=== PATIENT | male | born 2000 | race Caucasian/White ===

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

== ENCOUNTER 2023-10-28 13:19 | Emergency (ER) | payer BC, SELFPAY ==
[2023-10-28 13:35] VITALS: BP 162/73; PULSE 84; RESP 12; TEMP 36.1; O2SAT 97
--- NOTE | 2023-10-28 14:25 | DI.RAD_ITS ---
Exam(s) XR RIBS LT W PA LAT CHEST CLINICAL HISTORY Posterior lateral blunt trauma. COMPARISON: No exams were available for comparison TECHNIQUE:: PA and lateral views of the chest and four views of the left ribs were performed. FINDINGS: LUNGS: Clear. No pleural abnormality seen. HEART: Normal. MEDIASTINUM: Normal. BONES: No displaced rib fracture is seen. No compression fractures are seen in the thoracic spine. No bony destructive lesion is seen. OTHER FINDINGS: None. IMPRESSION: 1. Unremarkable radiographic appearance of the left ribs. 2. No acute pulmonary findings.
--- NOTE | 2023-10-28 14:56 | W.ED.GENAD ---
Discharge Plan Disposition Patient Disposition: Home Discharge Details Clinical Impression: Contusion of back wall of thorax Primary Care Provider: Eulalio Kumar ED Provider: Demetrio Gauthier Home Meds and New Rx's Prescriptions: New ibuprofen [IBU] 600 mg tablet 600 mg PO QID PRN (Reason: pain) Qty: 20 0RF Continued dextroamphetamine-amphetamine 10 mg tablet 10 mg PO DAILY Patient Comments: TAKE TWO TABLETS BY MOUTH EVERY DAY IN THE AFTERNOON dextroamphetamine-amphetamine 10 mg capsule,extended release 24hr 10 mg PO DAILY Patient Comments: TAKE ONE CAPSULE BY MOUTH EVERY MORNING - TAKE WITH 20MG ER CAPSULE FOR TOTAL OF 30MG DAILY - DO NOT CRUSH OR CHEW dextroamphetamine-amphetamine 20 mg capsule,extended release 24hr 20 mg PO DAILY Patient Comments: TAKE ONE CAPSULE BY MOUTH EVERY MORNING WITH ADDERAL XR 10MG sertraline 25 mg tablet 25 mg PO DAILY Patient Comments: TAKE ONE TABLET BY MOUTH EVERY DAY montelukast 10 mg tablet 10 mg PO DAILY Patient Comments: TAKE ONE TABLET BY MOUTH EVERY DAY sertraline 50 mg tablet 50 mg PO DAILY Patient Comments: TAKE ONE TABLET BY MOUTH EVERY DAY Discharge Instructions Instructions: Rib Fracture or Bruised Rib ED Additional Instructions: At this time no acute rib fractures were noted and I suspect chest wall contusion. If you have any new or significant worsening of symptoms feel free to return to the emergency department for reassessment otherwise follow-up with primary care provider if not improving You may continue use of kihm-fis-[id number] pain medication such as acetaminophen and if the provided lidocaine patch is beneficial you may purchase dapn-[id number] 4% lidocaine patches and apply to area of most pain and use as directed on packaging. Referrals: Eulalio Kumar [Primary Care Provider] - (As needed for reassessment or if not improving) [facility] General Mode of arrival: ambulatory. Date/Time Provider Initiated Documentation: 10/28/23 13:49. Limitations to Documentation: no limitations. Information obtained by: patient and RN notes reviewed. History of Present Illness 23 year old M presents to the emergency department with the chief complaint of Left chest wall pain, described as moderate and severe, Patient started experiencing this day(s) (3) and it has been constant. Immobilization improves symptom(s), Movement worsens symptoms . Related Data Home Medications ?Medication ?Instructions ?Recorded ?Confirmed dextroamphetamine-amphetamine 10 10 mg PO DAILY 10/28/23 10/28/23 mg tablet dextroamphetamine-amphetamine ER 10 mg PO DAILY 10/28/23 10/28/23 10 mg 24hr capsule,extend release dextroamphetamine-amphetamine ER 20 mg PO DAILY 10/28/23 10/28/23 20 mg 24hr capsule,extend release ibuprofen 600 mg tablet (IBU) 600 mg PO QID PRN pain #20 tabs 10/28/23 montelukast 10 mg tablet 10 mg PO DAILY 10/28/23 10/28/23 sertraline 25 mg tablet 25 mg PO DAILY 10/28/23 10/28/23 sertraline 50 mg tablet 50 mg PO DAILY 10/28/23 10/28/23 Previous Rx's ?Medication ?Instructions ?Recorded ibuprofen 600 mg tablet (IBU) 600 mg PO QID PRN pain #20 tabs 10/28/23 Allergies Allergy/AdvReac Type Severity Reaction Status Date / Time No Known Allergies Allergy Unverified 03/04/17 17:56 General Stated Complaint: Chest/Rib BILLY: 4 Review of Systems Constitutional Constitutional: Denies fever(s) Cardiovascular Cardiovascular: Reports chest pain (Chest wall) and Denies dyspnea Respiratory Respiratory: Denies cough, Reports pain on inspiration, Reports pain with cough and Denies dyspnea Gastrointestinal Gastrointestinal: Denies abdominal pain Integumentary/Breasts Skin/Breast: Denies unusual bruising Exam Const General: cooperative, no acute distress and not ill appearing Orientation: alert, awake and oriented x3 HENMT Mouth: moist mucous membranes Chest Chest: normal inspection of the chest, no crepitus, localized rib tenderness with anteroposterior compression left posterior-axillary line involving the 5th rib, involving the 6th rib and involving the 7th rib and tenderness rib left posterior-axillary line involving the 5th rib, involving the 6th rib and involving the 7th rib and sternum Breast inspection: normal inspection of the breasts Resp Effort & Inspection: normal respiratory effort, able to speak in complete sentences and no respiratory distress Auscultation: clear to auscultation bilaterally Cardio Rate: regular rate Rhythm: regular rhythm Heart Sounds: S1 normal and S2 normal Skin General skin exam: no rashes or lesions noted Neuro General: patient alert, patient awake, patient oriented x3, moves all extremities and no focal motor deficits Sensory Exam: no sensory deficits noted Course Vital Signs Vital signs: Vital Signs Temperature 36.1 C L 10/28/23 13:35 Pulse 84 10/28/23 13:35 Respiratory Rate 12 10/28/23 13:35 Blood Pressure 162/73 H 10/28/23 13:35 Pulse Oximetry 97 10/28/23 13:35 Temperature 36.1 C L 10/28/23 13:35 Temperature Source Skin 10/28/23 13:35 Pulse 84 10/28/23 13:35 Respiratory Rate 12 10/28/23 13:35 Respiratory Effort Short of Breath 10/28/23 14:23 Respiratory Depth Normal 10/28/23 14:23 Respiratory Pattern Normal 10/28/23 14:23 Blood Pressure 162/73 H 10/28/23 13:35 Blood Pressure Position Sitting 10/28/23 13:35 Pulse Oximetry 97 10/28/23 13:35 Oxygen Delivery Method Room Air 10/28/23 13:35 Oxygen Flow Rate 0 10/28/23 13:35 Pain Level 6 10/28/23 13:35 Medical Decision Making Patient presenting to the emergency department for chief complaint of fall with injury to left chest wall/ribs 3 days ago. Patient states that he was significantly intoxicated and fell against the door frame at his house injuring his left ribs. Patient denies any other injury or trauma, states continued symptoms to bring him into the emergency department today. Physical exam shows clear lung sounds in all burch, slight tenderness to palpation of sternum but most tenderness is present to left posterior axillary ribs 5-7. No signs of ecchymosis, no crepitus, exam otherwise noncontributory. Given blunt trauma with point tenderness will perform radiological imaging. Review of radiological imaging shows no acute pulmonary or bony findings noted. Will recommend lidocaine patch along with fekn-ggx-[id number] pain control. After discussion of diagnosis and plan of care patient has no further needs, questions, or concerns and states clear understanding to return to the emergency department for any worsening symptoms. This documentation was generated using [employer] dictation system, please disregard any oddities of phrase or misspellings. Imaging Data Radiologic Study: Radiologist's impression: FINDINGS: LUNGS: Clear. No pleural abnormality seen. HEART: Normal. MEDIASTINUM: Normal. BONES: No displaced rib fracture is seen. No compression fractures are seen in the thoracic spine. No bony destructive lesion is seen. OTHER FINDINGS: None. IMPRESSION: 1. Unremarkable radiographic appearance of the left ribs. 2. No acute pulmonary findings. Quality:SDOH Health Related Social Needs: No Data to Display PFSH All Active Problems (Updated 10/28/23 @ 15:02 by Demetrio Gauthier NP) Contusion of back wall of thorax (Acute) Social History Smoking/Tobacco Use Status: Current every day Tobacco Type: e-cigarettes Smoking risk assessment performed?: Yes Alcohol Intake: current Alcohol Intake frequency: a few times a week Drug use: Occasionally Substance use type: marijuana Do you feel safe at home: Yes Do you feel safe in your relationship?: Yes PAWSS Have you Been Recently Intoxicated or Drunk Within the Last 30 days?: No Have you Ever Experienced Previous Episodes of Alcohol Withdrawal?: No Have you ever Experienced Withdrawal Seizures?: No Have you ever Experienced Delirium Tremens(DT)s?: No Have you ever undergone Alcohol Rehabilitation Treatment (i.e, inpt ot outpatient treatment programs)?: No Have you ever Experienced Blackouts?: No Have you ever Combined Alcohol with other Downers within the last 90 days?: No Have you ever Combined Alcohol with any other Substance of Abuse during the last 90 days?: No Positive Blood Alcohol level on Presentation? [PCS.BAL]: No Evidence of Increased Autonomic Activity (i.e. HR>120, tremor, sweating, agitation, nausea)?: No Result: 0
[2023-10-28 15:09] VITALS: BP 129/68; PULSE 81; RESP 15; O2SAT 100
[2023-10-28] MEDS: Lidocaine 5% Patch 1 PATCH TP (15:11)
== END 2023-10-28 15:14 | disposition home or self-care (01) ==
PROVIDERS: Emergency Provider Nurse Practitioner Family; PCP Pediatrics
DX: S20.222A Contusion of left back wall of thorax, initial encounter (principal); F17.290 Nicotine dependence, other tobacco product, uncomplicated; W01.198A Fall on same level from slipping, tripping and stumbling with subsequent striking against other object, initial encounter; Y93.89 Activity, other specified; Y92.89 Other specified places as the place of occurrence of the external cause
CPT/HCPCS: 99283; 71046; 71100

== ENCOUNTER 2024-07-25 00:37 | Emergency (ER) | payer BC, SELFPAY ==
[2024-07-25] VITALS (70 sets, daily range): BP systolic 116–170; BP diastolic 45–99; PULSE 46–86; RESP 10–20; TEMP 35.7–36.1; O2SAT 92–100
--- NOTE | 2024-07-25 00:15 | RT.EKG_ITS ---
APPROVED REPORT Exam: Resting ECG Reason for Exam: OD Patient Location: E HR:75 bpm ECG Measurements Heart Rate 75 AXIS NE 165 P 75 QRSd 101 QRS 72 QT 381 T 53 QTc 426 Conclusion Sinus arrhythmia...V-rate 59- 87, variation>10% appropriate intervals no ST segment or T wave abnormalities to suggest occlusive [place]
[2024-07-25 00:44] LABS: BE (Venous) -5 mmol/L (-2-3); HCO3 (Venous) 22 mmol/L (23-28); O2 Sat (Venous) 72 %; TCO2 (Venous) 20 mmol/L (24-29); pCO2 (Venous) 51 mmHg (41-51); pH (Venous) 7.25 (7.31-7.41); pO2 (Venous) 41 mmHg
--- NOTE | 2024-07-25 00:45 | ED.GENADUL_ITS ---
Discharge Plan Disposition Patient Disposition: Home Condition: Good Discharge Details Clinical Impression: Overdose Primary Care Provider: Eulalio Kumar ED Provider: Jen Hussein Home Meds and New Rx's Prescriptions: Continued dextroamphetamine-amphetamine 20 mg capsule,extended release 24hr 20 mg PO DAILY Patient Comments: TAKE ONE CAPSULE BY MOUTH EVERY MORNING WITH ADDERAL XR 10MG sertraline 25 mg tablet 25 mg PO DAILY Patient Comments: TAKE ONE TABLET BY MOUTH EVERY DAY montelukast 10 mg tablet 10 mg PO DAILY Patient Comments: TAKE ONE TABLET BY MOUTH EVERY DAY sertraline 50 mg tablet 50 mg PO DAILY Patient Comments: TAKE ONE TABLET BY MOUTH EVERY DAY ibuprofen [IBU] 600 mg tablet 600 mg PO QID PRN (Reason: pain) Qty: 20 0RF Discontinued dextroamphetamine-amphetamine 10 mg tablet 10 mg PO DAILY Patient Comments: TAKE TWO TABLETS BY MOUTH EVERY DAY IN THE AFTERNOON dextroamphetamine-amphetamine 10 mg capsule,extended release 24hr 10 mg PO DAILY Patient Comments: TAKE ONE CAPSULE BY MOUTH EVERY MORNING - TAKE WITH 20MG ER CAPSULE FOR TOTAL OF 30MG DAILY - DO NOT CRUSH OR CHEW Discharge Instructions Instructions: Opioid Overdose ED Additional Instructions: Do not use recreational drugs. What happened last night would have killed you if you had not received medical attention. Please take home Narcan and make sure the people around you know how to use it. You will not be able to give it to yourself if you overdose. Call your primary care doctor on Saturday to schedule an appointment within one week to followup on your visit today. At that visit mention that your EKG showed some peaked T-waves; they may wish to followup on this with further testing. Return to the emergency department for new or worsening symptoms including chest pain, difficulty breathing, feeling like you are going to pass out, or if you have any other concerns. Referrals: Eulalio Kumar [Primary Care Provider] - HPI General Mode of arrival: EMS . Date/Time Provider Initiated Documentation: 07/25/24 00:39 . Limitations to Documentation: no limitations . Information obtained by: patient and EMS . HPI Narrative: 23yo previously healthy male presenting for overdose. He and several friends snorted a white powder that they thought was cocaine. Multiple people then became unresponsive. Patient went outside after he used the substance because he 'felt funny'. Per EMS he was found outside, not breathing. Recieved a total of 4mg of naracan prior to arrival as well as zofran. Temp with 91F on seen, got 500cc of warmed IVF. No reports of fall or head injury. Patient has no pain anywhere. Otherwise in his usual state of health. Was feeling well prior to this event. Related Data Home Medications ?Medication ?Instructions ?Recorded ?Confirmed dextroamphetamine-amphetamine ER 20 mg PO DAILY 10/28/23 07/25/24 20 mg 24hr capsule,extend release ibuprofen 600 mg tablet (IBU) 600 mg PO QID PRN pain #20 tabs 10/28/23 07/25/24 montelukast 10 mg tablet 10 mg PO DAILY 10/28/23 07/25/24 sertraline 25 mg tablet 25 mg PO DAILY 10/28/23 07/25/24 sertraline 50 mg tablet 50 mg PO DAILY 10/28/23 07/25/24 Previous Rx's ?Medication ?Instructions ?Recorded ibuprofen 600 mg tablet (IBU) 600 mg PO QID PRN pain #20 tabs 10/28/23 Allergies Allergy/AdvReac Type Severity Reaction Status Date / Time No Known Allergies Allergy Unverified 07/25/24 00:37 General Stated Complaint: OD/Poison BILLY: 2 Review of Systems Narrative: see HPI Exam Narrative Exam Narrative: General: Alert, in no acute distress. Head: Normocephalic, atraumatic Neck: Trachea midline, Neck supple. ENT: MMM. Cardiac: RRR, no murmurs appreciated Resp: No respiratory distress. CTAB. Abd: Soft, non-distended, nontender Extremities: No deformities. No peripheral edema. Neurologic: GCS 15. Moves all extremities freely against gravity Course Vital Signs Vital signs: Vital Signs Temperature 35.7 C L 07/25/24 00:24 Pulse 70 07/25/24 00:24 Respiratory Rate 16 07/25/24 00:24 Blood Pressure 170/82 H 07/25/24 00:24 Pulse Oximetry 100 07/25/24 00:24 Temperature 35.7 C L 07/25/24 00:24 Temperature Source Tympanic 07/25/24 00:24 Pulse 70 07/25/24 00:24 Respiratory Rate 16 07/25/24 00:33 Respiratory Effort Normal, Non-Labored 07/25/24 00:33 Respiratory Depth Normal 07/25/24 00:33 Respiratory Pattern Normal 07/25/24 00:33 Blood Pressure 170/82 H 07/25/24 00:24 Blood Pressure Position Supine 07/25/24 00:24 Pulse Oximetry 100 07/25/24 00:24 Oxygen Delivery Method Room Air 07/25/24 00:24 Oxygen Flow Rate 0 07/25/24 00:24 Pain Level 0 07/25/24 00:24 Lab/Test Results Lab/Test Results: Laboratory Tests Range/Units 07/25/24 00:41 VBG pH (7.31-7.41) 7.25 L VBG pCO2 (41-51) mmHg 51 VBG pO2 mmHg 41 VBG HCO3 (23-28) mmol/L 22 L VBG Total CO2 (24-29) mmol/L 20 L VBG O2 Saturation % 72 VBG Base Excess (-2-3) mmol/L -5 L Medical Decision Making 23yo previously healthy male presenting for overdose. He and several friends snorted a white powder that they thought was cocaine. Multiple people then became unresponsive. Per EMS he was found outside, not breathing. Recieved a t otal of 4mg of naracan prior to arrival as well as zofran. Temp with 91F on seen, got 500cc of warmed IVF. Alert with no complaints on arrival. Hypertensive on initial vital signs with normal O2 sat on room air, temp 35.7C. Given warmed blankets. BP improved without intervention. EKG on arrival SR, appropriate intervals, no ST segment or T wave abnormalities to suggest occlusive CO. Initial VBG with pH 7.25, normal bicarb, no hypercapnea. Repeat two hours later improved with pH 7.31. Subsequently noted to have increasingly peaked T waves on telemetry. Repeat EKG remains sinus, confirms T wave changes. Patient reports feeling well with no chest pain, SOB, or lightheadedness. Repeat vital signs remain reassuring. Additional labs sent and reviewed as below, CBC with leukocytosis to 21 (likely reactive), CMP normal with normal potassium, HS troponin 16 with one hour repeat 15. Observed in the ED for a total of 7 hours. On reassessment patient remains well appearing with reassuring vital signs. Reports feeling entirely well and back to normal. Alert, end tidal CO2 in low 40's. Discharged home with Narcan; discharge instructions and return precaustions were reviewed with patient who verbalized understanding. All questions were answered and he is in full agremeent with the plan. Lab Data Lab results reviewed: Yes I reviewed the patient's lab results. Labs: Laboratory Tests Range/Units 07/25/24 07/25/24 07/25/24 00:41 02:31 04:16 WBC (4.4-10.8) 10^3/uL 21.78 H RBC (4.36-5.78) 10^6/uL 5.03 Hgb (13.5-17.5) g/dL 15.1 Hct (40.0-50.0) % 45.6 MCV (80-95) fL 91 MCH (27.0-33.0) pg 30.0 MCHC (32.0-36.0) % 33.1 RDW (11.8-14.1) % 13.6 Plt Count (130-400) 10^3/uL 222 MPV (8.0-11.0) fL 10.3 Immature Gran % % 0.5 Neutrophils % % 86.3 Lymphocytes % % 7.6 Monocytes % % 5.3 Eosinophils % % 0.0 Basophils % % 0.3 Nucleated RBC % (0.0-0.3) % 0.0 Absolute Neutrophils (1.2-6.7) 10^3/uL 18.80 H Absolute Lymphocytes (1.2-3.4) 10^3/uL 1.66 Absolute Monocytes (0.1-0.8) 10^3/uL 1.15 H Absolute Eosinophils (0.0-0.7) 10^3/uL 0.00 Absolute Basophils (0.0-0.2) 10^3/uL 0.07 VBG pH (7.31-7.41) 7.25 L 7.31 VBG pCO2 (41-51) mmHg 51 51 VBG pO2 mmHg 41 51 VBG HCO3 (23-28) mmol/L 22 L 25 VBG Total CO2 (24-29) mmol/L 20 L 23 L VBG O2 Saturation % 72 85 VBG Base Excess (-2-3) mmol/L -5 L -1 Sodium (136-145) mmol/L 141 Potassium (3.5-5.1) mmol/L 4.3 Chloride (98-107) mmol/L 107 Carbon Dioxide (21.0-32.0) mmol/L 26.1 Anion Gap (3-11) mmol/L 7.9 BUN (7-18) mg/dL 17 Creatinine (0.70-1.30) mg/dL 0.8 Est GFR (CKD-EPI 2020) (mL/min/1.73m2) 128.33 Glucose (74-106) mg/dL 96 Calcium (8.5-10.1) mg/dL 9.1 Total Bilirubin (0.2-1.0) mg/dL 0.3 AST (15-37) U/L 18 ALT (16-63) U/L 31 Alkaline Phosphatase (46-116) U/L 88 Troponin I (<or=76) ng/L 16 Total Protein (6.4-8.2) g/dL 6.8 Albumin (3.4-5.0) g/dL 3.9 Range/Units 07/25/24 05:20 WBC (4.4-10.8) 10^3/uL RBC (4.36-5.78) 10^6/uL Hgb (13.5-17.5) g/dL Hct (40.0-50.0) % MCV (80-95) fL MCH (27.0-33.0) pg MCHC (32.0-36.0) % RDW (11.8-14.1) % Plt Count (130-400) 10^3/uL MPV (8.0-11.0) fL Immature Gran % % Neutrophils % % Lymphocytes % % Monocytes % % Eosinophils % % Basophils % % Nucleated RBC % (0.0-0.3) % Absolute Neutrophils (1.2-6.7) 10^3/uL Absolute Lymphocytes (1.2-3.4) 10^3/uL Absolute Monocytes (0.1-0.8) 10^3/uL Absolute Eosinophils (0.0-0.7) 10^3/uL Absolute Basophils (0.0-0.2) 10^3/uL VBG pH (7.31-7.41) VBG pCO2 (41-51) mmHg VBG pO2 mmHg VBG HCO3 (23-28) mmol/L VBG Total CO2 (24-29) mmol/L VBG O2 Saturation % VBG Base Excess (-2-3) mmol/L Sodium (136-145) mmol/L Potassium (3.5-5.1) mmol/L Chloride (98-107) mmol/L Carbon Dioxide (21.0-32.0) mmol/L Anion Gap (3-11) mmol/L BUN (7-18) mg/dL Creatinine (0.70-1.30) mg/dL Est GFR (CKD-EPI 2020) (mL/min/1.73m2) Glucose (74-106) mg/dL Calcium (8.5-10.1) mg/dL Total Bilirubin (0.2-1.0) mg/dL AST (15-37) U/L ALT (16-63) U/L Alkaline Phosphatase (46-116) U/L Troponin I (<or=76) ng/L 15 Total Protein (6.4-8.2) g/dL Albumin (3.4-5.0) g/dL Quality:SDOH Health Related Social Needs: No Data to Display PFSH All Active Problems (Updated 07/25/24 @ 07:13 by Jen Hussein MD) Overdose (Acute) Social History Smoking/Tobacco Use Status: Current every day Tobacco Type: e-cigarettes Smoking risk assessment performed?: Yes Alcohol Intake: current Alcohol Intake frequency: a few times a week Drug use: Occasionally Substance use type: marijuana and crack/cocaine Details: first time using cocaine tonight 07/24/24 Do you feel safe at home: Yes Do you feel safe in your relationship?: Yes
[2024-07-25 02:37] LABS: BE (Venous) -1 mmol/L (-2-3); HCO3 (Venous) 25 mmol/L (23-28); O2 Sat (Venous) 85 %; TCO2 (Venous) 23 mmol/L (24-29); pCO2 (Venous) 51 mmHg (41-51); pH (Venous) 7.31 (7.31-7.41); pO2 (Venous) 51 mmHg
--- NOTE | 2024-07-25 04:00 | RT.EKG_ITS ---
APPROVED REPORT Exam: Resting ECG Reason for Exam: overdose Patient Location: E HR:47 bpm ECG Measurements Heart Rate 47 AXIS [place] 142 P 48 QRSd 98 QRS 76 QT 426 T 60 QTc 378 Conclusion Sinus bradycardia...rate< 60 peaked T waves compared to prior ekg @[address] segment or T wave abnormalities to suggest occlusive [place]
[2024-07-25 04:22] LABS: Abs Immature Grans 0.11 10^3/uL (0.0-0.06); Basophils % 0.3 %; HCT 45.6 % (40.0-50.0); HGB 15.1 g/dL (13.5-17.5); Immature Grans % 0.5 %; Lymphocytes % 7.6 %; MCHC 33.1 % (32.0-36.0); MCV 91 fL (80-95); MPV 10.3 fL (8.0-11.0); Monocytes % 5.3 %; Neutrophils % 86.3 %; Platelet Count 222 10^3/uL (130-400); RBC 5.03 10^6/uL (4.36-5.78); RDW 13.6 % (11.8-14.1); RDW-SD 45.5 fL; WBC 21.78 10^3/uL (4.4-10.8)
[2024-07-25 04:25] LABS: Absolute Basophil Count 0.07 10^3/uL (0.0-0.2); Absolute Lymphocyte Count 1.66 10^3/uL (1.2-3.4); Absolute Monocyte Count 1.15 10^3/uL (0.1-0.8)
[2024-07-25 04:41] LABS: ALT 31 U/L (16-63); AST 18 U/L (15-37); Albumin 3.9 g/dL (3.4-5.0); Alkaline Phosphatase 88 U/L (46-116); Anion Gap 7.9 mmol/L (3-11); BUN 17 mg/dL (7-18); Bilirubin, Total 0.3 mg/dL (0.2-1.0); CO2 26.1 mmol/L (21.0-32.0); CREATININE 0.8 mg/dL (0.70-1.30); Calcium 9.1 mg/dL (8.5-10.1); Chloride 107 mmol/L (98-107); Estimated GFR 128.33 (mL/min/1.73m2); Glucose 96 mg/dL (74-106); Potassium 4.3 mmol/L (3.5-5.1); Sodium 141 mmol/L (136-145); Total Protein 6.8 g/dL (6.4-8.2); Troponin I 16 ng/L (<or=76)
[2024-07-25 05:49] LABS: Troponin I 15 ng/L (<or=76)
--- NOTE | 2024-07-25 06:15 | RT.EKG_ITS ---
APPROVED REPORT Exam: Resting ECG Reason for Exam: Overdose Patient Location: E HR:58 bpm ECG Measurements Heart Rate 58 AXIS [place] 139 P 58 QRSd 98 QRS 82 QT 405 T 66 QTc 399 Conclusion Sinus bradycardia...rate< [address] segment or T wave abnormalities to suggest occlusive [place]
== END 2024-07-25 07:42 | disposition home or self-care (01) ==
PROVIDERS: Emergency Provider Student in an Organized Health Care Education/Training Program; PCP Pediatrics
DX: T50.901A Poisoning by unspecified drugs, medicaments and biological substances, accidental (unintentional), initial encounter (principal)
CPT/HCPCS: 99285 ×2; 36415; 80053; 82805; 93005; 84484; 85025; 93010